=== PATIENT | female | born 1965 | race Caucasian/White ===

== ENCOUNTER 2017-05-20 15:28 | Emergency (ER) | payer BC ==
[2017-05-20 15:45] VITALS: BP 151/67
--- NOTE | 2017-05-20 16:59 | UC ---
Nuria Kennedy Gabriel, scribed for Carlos Chow MD on 05/20/17 at 1602 . FLU HPI - HPI Summary HPI Summary: This patient is a 51 year old F presenting to [facility] with a chief complaint of flu like illness since Wednesday morning. The patient rates the pain 6/10 in severity. Patient reports n/d, RODRIGUEZ, myalgia, sore throat, fatigue, chills, cough , and fever of 100. Patient denies rhinorrhea, vomiting, dysuria, and ABD pain. Patient just returned from [place] yesterday. She states she had 6 episodes of diarrhea yesterday but only one today. - History of Current Complaint Chief Complaint: UCGeneralIllness Stated Complaint: FEVER, ACHES, CHILLS, AND NAUSEA Time Seen by Provider: 05/20/17 15:56 Hx Obtained From: Patient Hx Last Menstrual Period: Ablation 4 years ago Onset/Duration: Lasting Days - 1, Still Present Severity Currently: Moderate Severity Initially: Moderate Pain Intensity: 6 Pain Scale Used: 0-10 Numeric Associated Signs & Symptoms: Positive: Fever, Myalgia, Cough, Nasal Congestion, Headache, Diarrhea - Allergy/Home Medications Allergies/Adverse Reactions: Allergies Allergy/AdvReac Type Severity Reaction Status Date / Time No Known Allergies Allergy Verified 05/20/17 15:35 Home Medications: Home Medications Esomeprazole Magnesium [Nexium 24Hr] 20 mg PO DAILY 05/20/17 [History Confirmed 05/20/17] Ibuprofen [Ibuprofen 200 MG] 200 mg PO ONCE 05/20/17 [History Confirmed 05/20/17 ] PMH/Surg Hx/FS Hx/Imm Hx Previously Healthy: Yes Other History Of: Negative For: HIV, Hepatitis B, Hepatitis C - Surgical History Surgical History: Yes Surgery Procedure, Year, and Place: 2008 Ablation, tubal ligation,2005 Breast Reduction,07/2013-LASIK, HAND SURGERY RT - Family History Known Family History: Negative: Cardiac Disease, Hypertension, Renal Disease, Respiratory Disease, Seizure Disorder - Social History Occupation: Employed Full-time Alcohol Use: Weekly Alcohol Amount: 0-2 PER DAY Substance Use Type: None Smoking Status (MU): Never Smoked Tobacco - Immunization History Most Recent Influenza Vaccination: 2016 Most Recent Tetanus Shot: 2009 Review of Systems Constitutional: Fever, Chills, Fatigue ENT: Sore Throat Respiratory: Cough Gastrointestinal: Diarrhea, Nausea Musculoskeletal: Myalgia Neurological: Headache All Other Systems Reviewed And Are Negative: Yes Physical Exam Triage Information Reviewed: Yes Appearance: Well-Appearing, No Pain Distress, Well-Nourished Vital Signs: Initial Vital Signs Temp 100.0 F 05/20/17 15:38 Pulse 101 05/20/17 15:38 Resp 16 05/20/17 15:38 BP 151/67 05/20/17 15:38 Pulse Ox 99 05/20/17 15:38 Vital Signs Reviewed: Yes Eyes: Positive: Conjunctiva Clear, Other: - no photophobia ENT: Positive: Normal ENT inspection, Hearing grossly normal, Pharynx normal, Nasal congestion, TMs normal - cerumen bilateral Neck: Positive: Supple, Nontender Respiratory: Positive: Lungs clear, Normal breath sounds, No respiratory distress Cardiovascular: Positive: RRR, No Murmur Abdomen Description: Positive: Nontender Musculoskeletal: Positive: Strength Intact, ROM Intact, Other: - no effusions joints Neurological: Positive: Alert, Muscle Tone Normal Flu Course/Dx - Course Course Of Treatment: 51 yr old with low grade fever, Nause, diarrhea that is better, and nasal congestion and sore throat. neg influenza and neg rapid strep. Plan DC home. - Differential Dx/Diagnosis Provider Diagnoses: hypertension. viral syndrome Discharge - Discharge Plan Condition: Good Disposition: HOME Patient Education Materials: Hypertension (ED), Viral Syndrome (ED) Referrals: Dewayne Galloway MD [Primary Care Provider] - 2 Days The documentation as recorded by the Nuria james Gabriel accurately reflects the service I personally performed and the decisions made by me, Carlos Chow MD.
== END 2017-05-20 17:06 | disposition home or self-care (01) ==
LOC: UCEAST 15:28
DX: B34.9 Viral infection, unspecified (principal); I10 Essential (primary) hypertension
CPT/HCPCS: 87502; 87651; 99212; G0463